=== PATIENT | female | born 1935 | race Caucasian/White ===

== ENCOUNTER 2017-11-30 08:11 | Observation (INO) | payer MEDICARE ==
[~2017-11-30] VITALS: Ht 160 cm; Wt 74.9 kg
[~2017-11-30 08:11] MED LIST: ACIDOPHILUS PO; AMLO5TAB96 PO; DIAZ5 PO; FISH100020 PO; HYDR12.56; OXYC-360 PO; PRIL20CA PO; ROLACHW21 PO; TAB-TAB PO; TAMB50TA2; ZOCO10TA PO; [UNRECOGNIZED DRUG - CODE] PO
[2017-11-30 08:14] VITALS: BP 153/71; PULSE 85; RESP 22; TEMP 97.7; O2SAT 96
[2017-11-30 08:27] VITALS: BP 166/77; PULSE 82; RESP 18; O2SAT 95
[2017-11-30] MEDS ORDERED: SODIUM CHLOR 0.9% 1000 ML INJ 1,000 ML IV ONE (08:32)
--- NOTE | 2017-11-30 08:38 | PD ---
HPI Chief Complaint: GI Complaint Time Seen by Provider: 08:32 Travel History International Travel<30 days: No Contact w/Intl Traveler<30days: No Traveled to known affect area: No History of Present Illness HPI 82-year-old female patient with history of recent pneumonia a week ago, given an antibiotics by primary care doctor, Dr. Gamble, and states that she was not doing well on it, has been nauseous, feeling dizzy, and had been started on a new antibiotics, a cephalosporin yesterday. She continues to have nausea, vomiting, dizziness, not feeling well. She denies any fevers currently, abdominal pains, chest pains, or other issues. She states that now she is not urinating. Modifying Factors: None Associated Signs & Symptoms: Nausea, vomiting, dizziness, not feeling well Risk Factors: Recently diagnosed with pneumonia, on antibiotics PFSH Past Medical History Arthritis: Yes Anxiety: Yes Heart Rhythm Problems: Yes Cancer: No Cardiovascular Problems: No High Cholesterol: Yes Cerebrovascular Accident: Yes Diabetes: No Diminished Hearing: Yes Gastrointestinal Disorders: Yes (DIVERTICULITIS) GERD: Yes Glaucoma: No Hepatitis: No Hiatal Hernia: Yes (GERD) Hypertension: Yes Thyroid Disease: No Menopausal: Yes Past Surgical History Abdominal Surgery: Yes (COLON RESECTION) Appendectomy: Yes Cholecystectomy: Yes Endocrine Surgery: Yes (RIGHT KIDNEY REMOVED - 1966 r/t stenosis) Eye Surgery: Yes (LEFT CATARACT EXTRACT) Genitourinary Surgery: Yes (RIGHT NEPHRECTOMY) Gynecologic Surgery: Yes (HYSTERECTOMY) Hysterectomy: Yes Other Surgery: Yes (NEPHRECTOMY) Family History Family Myocardial Infarction: Yes Social History Alcohol Use: Yes (OCC) Tobacco Use: No Substance Use: No Allergies-Medications (Allergen,Severity, Reaction): Coded Allergies: diatrizoate meglumine (Unverified Allergy, Severe, RASH, 04/10/17) gadobenic acid (Unverified Allergy, Severe, RASH, 04/10/17) gadodiamide (Unverified Allergy, Severe, RASH, 04/10/17) gadoteridol (Unverified Allergy, Severe, RASH, 04/10/17) iodixanol (Unverified Allergy, Severe, RASH, 04/10/17) iohexol (Unverified Allergy, Severe, RASH, 04/10/17) morphine (Unverified Adverse Reaction, Mild, Nausea/Vomiting, 04/10/17) Reported Meds & Prescriptions Reported Meds & Active Scripts Active Reported Dramamine (Dimenhydrinate) 50 Mg Tab 50 Mg PO BID Acidophilus Cap 1 Tab PO DAILY Valium (Diazepam) 5 Mg Tab 5 Mg PO BIDPRN Zocor (Simvastatin) 10 Mg Tab 10 Mg PO HS Norvasc (Amlodipine Besylate) 5 Mg Tab 5 Mg PO DAILY Prilosec (Omeprazole) 20 Mg Capcr 20 Mg PO BID Percocet (Oxycodone/Acetaminophen) 5 Mg/325 Mg Tab 2 Tab PO HS Fish Oil (Tyler-3 Fatty Acids) 1,000 Mg Cap 1,000 Mg PO BID Rolaids (Calcium/Magnesium) Chw 1,000 Mg PO DAILY Multivitamin (Multivitamins) 1 Tab Tab 1 Tab PO DAILY Tambocor (Flecainide Acetate) 50 Mg Tab 50 Mg BID Hctz (Hydrochlorothiazide) 12.5 Mg Cap 12.5 Mg DAILY Review of Systems Except as stated in HPI: all other systems reviewed are Neg Physical Exam Narrative GENERAL: Well-developed elderly female patient currently in mild distress. Awake and oriented 3. She is fairly hard of hearing. SKIN: Focused skin assessment warm/dry. HEAD: Atraumatic. Normocephalic. EYES: Pupils equal and round. No scleral icterus. No injection or drainage. ENT: No nasal bleeding or discharge. Mucous membranes pink and moist. NECK: Trachea midline. No JVD. Supple. CARDIOVASCULAR: Regular rate and rhythm. No murmur appreciated. RESPIRATORY: No accessory muscle use. Clear to auscultation. Breath sounds equal bilaterally. GASTROINTESTINAL: Abdomen soft, non-tender, nondistended. Hepatic and splenic margins not palpable. MUSCULOSKELETAL: No obvious deformities. No clubbing. No cyanosis. No edema. NEUROLOGICAL: Awake and alert. No obvious cranial nerve deficits. Motor grossly within normal limits. Normal speech. PSYCHIATRIC: Appropriate mood and affect; insight and judgment normal. Data Data Last Documented VS Vital Signs Date Time Temp Pulse Resp B/P (MAP) Pulse Ox O2 Delivery O2 Flow Rate FiO2 11/30/17 08:52 96 Room Air 11/30/17 08:52 110 18 11/30/17 08:14 97.7 Orders Orders Sepsis Workup Initiated (11/30/17 ) Complete Blood Count With Diff (11/30/17 08:32) Comprehensive Metabolic Panel (11/30/17 08:32) Lactic Acid Sepsis Protocol (11/30/17 08:32) Lipase (11/30/17 08:32) Urinalysis - C+S If Indicated (11/30/17 08:32) Blood Culture (11/30/17 08:32) Chest, Single Ap (11/30/17 08:32) Blood Glucose (11/30/17 08:32) Ecg Monitoring (11/30/17 08:32) Iv Access Insert/Monitor (11/30/17 08:32) Oximetry (11/30/17 08:32) Oxygen Administration (11/30/17 08:32) Sodium Chlor 0.9% 1000 Ml Inj (Ns 1000 M (11/30/17 08:32) Piperacil-Tazo 4.5 Gm Premix (Zosyn 4.5 (11/30/17 09:57) Azithromycin Inj (Zithromax Inj) (11/30/17 09:57) Labs Laboratory Tests Test 11/30/17 08:45 11/30/17 09:40 White Blood Count 13.7 TH/MM3 Red Blood Count 4.84 MIL/MM3 Hemoglobin 15.7 GM/DL Hematocrit 44.2 % Mean Corpuscular Volume 91.3 FL Mean Corpuscular Hemoglobin 32.5 PG Mean Corpuscular Hemoglobin Concent 35.6 % Red Cell Distribution Width 13.5 % Platelet Count 309 TH/MM3 Mean Platelet Volume 8.7 FL Neutrophils (%) (Auto) 79.0 % Lymphocytes (%) (Auto) 11.0 % Monocytes (%) (Auto) 8.9 % Eosinophils (%) (Auto) 0.5 % Basophils (%) (Auto) 0.6 % Neutrophils # (Auto) 10.8 TH/MM3 Lymphocytes # (Auto) 1.5 TH/MM3 Monocytes # (Auto) 1.2 TH/MM3 Eosinophils # (Auto) 0.1 TH/MM3 Basophils # (Auto) 0.1 TH/MM3 CBC Comment DIFF FINAL Differential Comment Blood Urea Nitrogen 14 MG/DL Creatinine 0.95 MG/DL Random Glucose 120 MG/DL Total Protein 7.6 GM/DL Albumin 3.7 GM/DL Calcium Level 8.9 MG/DL Alkaline Phosphatase 63 U/L Aspartate Amino Transf (AST/SGOT) 19 U/L Alanine Aminotransferase (ALT/SGPT) 34 U/L Total Bilirubin 0.6 MG/DL Sodium Level 128 MEQ/L Potassium Level 3.2 MEQ/L Chloride Level 93 MEQ/L Carbon Dioxide Level 21.8 MEQ/L Anion Gap 13 MEQ/L Estimat Glomerular Filtration Rate 56 ML/MIN Lactic Acid Level 2.1 mmol/L Lipase 103 U/L Urine Color LIGHT-YELLOW Urine Turbidity CLEAR Urine pH 6.5 Urine Specific [place] 1.005 Urine Protein NEG mg/dL Urine Glucose (UA) NEG mg/dL Urine Ketones NEG mg/dL Urine Occult Blood NEG Urine Nitrite NEG Urine Bilirubin NEG Urine Urobilinogen LESS THAN 2.0 MG/DL Urine Leukocyte Esterase NEG Urine WBC LESS THAN 1 /hpf Urine Squamous Epithelial Cells 1 /hpf Microscopic Urinalysis Comment CATH-CULT NOT IND MDM Medical Decision Making Medical Screen Exam Complete: Yes Emergency Medical Condition: Yes Medical Record Reviewed: Yes Interpretation(s) Laboratory Tests Test 11/30/17 08:45 11/30/17 09:40 White Blood Count 13.7 TH/MM3 (4.0-11.0) Hemoglobin 15.7 GM/DL (11.6-15.3) Neutrophils (%) (Auto) 79.0 % (16.0-70.0) Monocytes (%) (Auto) 8.9 % (0.0-8.0) Neutrophils # (Auto) 10.8 TH/MM3 (1.8-7.7) Monocytes # (Auto) 1.2 TH/MM3 (0-0.9) Random Glucose 120 MG/DL (74-106) Sodium Level 128 MEQ/L (136-145) Potassium Level 3.2 MEQ/L (3.5-5.1) Chloride Level 93 MEQ/L (98-107) Estimat Glomerular Filtration Rate 56 ML/MIN (>89) Lactic Acid Level 2.1 mmol/L (0.4-2.0) Last 24 hours Impressions Chest X-Ray 11/30/17 0832 Signed Impressions: Service Date/Time: Thursday, November 30, 2017 08:39 - CONCLUSION: 1. No acute cardiopulmonary disease. Bran Key MD Differential Diagnosis Pneumonia versus dehydration versus viral syndrome versus metabolic issues versus medication side effect Narrative Course Chest x-ray did not show obvious signs of lobar pneumonia. She does have some mild interstitial infiltrates, questionable atypical pneumonia is a possibility here. She has significant leukocytosis. Abdomen is fairly benign. At this point, my plan would be to admit her for further treatment and evaluation. After a IV fluid bolus, she was able to give us urine and it was clean. Case is discussed with Dr. Camara for admission. Diagnosis Primary Impression: Sepsis Admitting Information Admitting Physician Requests: Admit Jin King MD Nov 30, 2017 08:38
[2017-11-30 08:52] VITALS: PULSE 110; RESP 18; O2SAT 96
--- NOTE | 2017-11-30 08:57 | RADRPT ---
EXAM DATE/TIME: 11/30/2017 08:39 [facility] COMPARISON: No previous studies available for comparison. INDICATIONS : Nausea and vomitting. MEDICAL HISTORY : None. SURGICAL HISTORY : None. ENCOUNTER: Initial ACUITY: 3 days PAIN SCORE: 3/10 LOCATION: Bilateral chest FINDINGS: A single view of the chest demonstrates the lungs to be symmetrically aerated without evidence of mas s, infiltrate or effusion. The cardiomediastinal contours are unremarkable. Osseous structures are intact. CONCLUSION: 1. No acute cardiopulmonary disease. Bran Key MD on November 30, 2017 at 8:54 Board Certified Radiologist. This report was verified electronically.
[2017-11-30 09:12] LABS: AUTOMATED NEUTROPHIL # 10.8 TH/MM3 (1.8-7.7); BASOPHIL # 0.1 TH/MM3 (0-0.2); BASOPHIL % 0.6 % (0.0-2.0); EOSINOPHIL # 0.1 TH/MM3 (0-0.4); EOSINOPHIL % 0.5 % (0.0-4.0); HEMATOCRIT 44.2 % (35.0-46.0); HEMOGLOBIN 15.7 GM/DL (11.6-15.3); LYMPHOCYTE # 1.5 TH/MM3 (1.0-4.8); MEAN CELL VOLUME 91.3 FL (80.0-100.0); MEAN CORPUSCULAR HEMOGLOBIN 32.5 PG (27.0-34.0); MEAN CORPUSCULAR HGB CONC 35.6 % (32.0-36.0); MEAN PLATELET VOLUME 8.7 FL (7.0-11.0); MONO % 8.9 % (0.0-8.0); MONOCYTE # 1.2 TH/MM3 (0-0.9); PLATELET COUNT 309 TH/MM3 (150-450); RED BLOOD COUNT 4.84 MIL/MM3 (4.00-5.30); RED CELL DISTRIBUTION WIDTH 13.5 % (11.6-17.2); WHITE BLOOD COUNT 13.7 TH/MM3 (4.0-11.0)
[2017-11-30 09:25] LABS: LACTIC ACID SEPSIS PROTOCOL 2.1 mmol/L (0.4-2.0)
[2017-11-30 09:32] LABS: ALBUMIN 3.7 GM/DL (3.4-5.0); AST (GOT) 19 U/L (15-37); BICARBONATE 21.8 MEQ/L (21.0-32.0); BLOOD UREA NITROGEN 14 MG/DL (7-18); CALCIUM 8.9 MG/DL (8.5-10.1); CHLORIDE 93 MEQ/L (98-107); CREATININE 0.95 MG/DL (0.50-1.00); GLOMERULAR FILTRATION RATE 56 ML/MIN (>89); GLUCOSE,RANDOM 120 MG/DL (74-106); SODIUM (NA) 128 MEQ/L (136-145)
[2017-11-30 09:33] LABS: ALT (GPT) 34 U/L (10-53)
[2017-11-30 09:35] LABS: ALKALINE PHOSPHATASE 63 U/L (45-117); TOTAL BILIRUBIN ADULT 0.6 MG/DL (0.2-1.0); TOTAL PROTEIN 7.6 GM/DL (6.4-8.2)
[2017-11-30 09:52] LABS: BILIRUBIN, URINE NEG (NEG); BLOOD, URINE NEG (NEG); GLUCOSE,URINE NEG (NEG); KETONE, URINE NEG (NEG); NITRITE,URINE NEG (NEG); PH, URINE 6.5 (5.0-8.5); SQUAMOUS EPITHELIAL CELL URINE 1 /hpf (0-5); URINE COLOR LIGHT-YELLOW (YELLW/STRAW); URINE LEUKOCYTE ESTERASE NEG (NEG)
[2017-11-30] MEDS ORDERED: PIPERACIL-TAZO 4.5 GM PREMIX 100 ML IV STA (09:57)
[2017-11-30] MEDS ORDERED: AZITHROMYCIN INJ 500 MG in SODIUM CHLOR 0.9% 250 ML INJ 250 ML IV STA (09:57)
[2017-11-30] MEDS ORDERED: SIMV10TA PO (12:00)
[2017-11-30] MEDS ORDERED: ROPI0.25 PO ×2 (12:00)
[2017-11-30] MEDS ORDERED: LACT1TAB12 (12:00)
[2017-11-30] MEDS ORDERED: FLEC1TAB8 PO (12:00)
[2017-11-30] MEDS ORDERED: AMLO2.5T PO (12:00)
[2017-11-30] MEDS ORDERED: FLAX10002 (12:00)
[2017-11-30] MEDS ORDERED: CALC1TAB87 PO (12:00)
[2017-11-30] MEDS ORDERED: VENTAER INH (12:00)
[2017-11-30] MEDS ORDERED: POTA10TA15 PO (12:00)
[2017-11-30] MEDS ORDERED: D31000CA3 (12:00)
[2017-11-30] MEDS ORDERED: HYDR25TA5 PO (12:00)
[2017-11-30] MEDS ORDERED: GABA300C5 PO (12:00)
[2017-11-30] MEDS ORDERED: LORA0.5T PO (12:00)
[2017-11-30] MEDS ORDERED: ESCI20TA PO (12:00)
[2017-11-30] MEDS ORDERED: OXYC1TAB63 PO (12:00)
[2017-11-30] MEDS ORDERED: LORazepam 0.5 MG TAB PO PRN (15:00)
[2017-11-30] MEDS ORDERED: TEMAZEPAM 15 MG CAP PO PRN (15:00)
--- NOTE | 2017-11-30 15:15 | HHI.HP ---
HPI Service [facility] Hospitalists Primary Care Physician Clemencia Simons Jr, MD Admission Diagnosis Pulmonary fibrosis, dyspnea on exertion Chief Complaint: SOB Travel History International Travel<30 Days: No Contact w/Intl Traveler <30 Da: No Traveled to Known Affected Are: No History of Present Illness Mrs. Hernandez is a pleasant 82 y/o WF with HTN, paroxysmal atrial fibrillation, fibromyalgia, and RLS. She was brought to the ED on 11/30/17 after she had some nausea/vomiting and diarrhea early this morning. The pt is a rather poor historian. The history was obtained from the pts son, Jimbo, who lives with her and from review of outpt records. According to the pts son, the pt had her regular annual physical with Dr. Simons, on November 16, 2017 and she had been having some SOB and coughing with ambulation for about 2-3 weeks was sent for a CXR. Her son reports that she would have coughing fits but it was a dry cough, no green phlegm. Pts symptoms of cough and SOB with exertion mainly. She is not SOB at rest. She was then sent for a noncontrasted CT Thorax which was performed on 11/22 and noted basilar and peripherally predominant pulmonary fibrosis with reticulation are characteristic of usual interstitial pneumonitis pattern. Pt was started on Levofloxacin 750mg, started on 11/23, and the pt reportedly felt restless, dizzy, confused, and had shaking chills per the son after the second dose. The Levaquin was stopped after the second dose and she called the PCP and a second Abx, Cefuroxime was called in. Pt took one dose yesterday evening and then reportedly started feeling very ill and had nausea/ vomiting and diarrhea early this morning. This prompted her to come into the ED. Her labs noted a WBC count of 13.7, Na+ 128, K+ 3.2. In the ED CXR was read as no acute cardiopulmonary disease. Pt was given a dose of Zosyn and Azithromycin IV in the ED. Pt had been scheduled to see a fur trapper today but ended up in the ED. She was scheduled to see Dr. Taylor. Review of Systems Constitutional: DENIES: Fever, Chills Respiratory: COMPLAINS OF: Cough Cardiovascular: COMPLAINS OF: Dyspnea on Exertion, DENIES: Chest pain, Palpitations, Lower Extremity Edema Gastrointestinal: COMPLAINS OF: Diarrhea, Nausea, Vomiting Genitourinary: DENIES: Urinary frequency, Urinary incontinence Musculoskeletal: DENIES: Back pain Integumentary: DENIES: Rash Neurologic: DENIES: Headache Past Family Social History Past Medical History Paroxysmal atrial fibrillation HTN Chronic back pain Fibromyalgia RLS Peripheral neuropathy Past Surgical History Right nephrectomy due to ureteral stricture Partial colectomy Total hysterectomy Cholecystectomy Reported Medications Vitamin D-3 (Cholecalciferol) 1,000 Unit Cap Ventolin Hfa 18 GM Inh (Albuterol Sulfate) 90 Mcg/Act Aer 2 Puff INH Q4-6H PRN Simvastatin 10 Mg Tab 10 Mg PO HS Ropinirole 0.5 Mg PO HS Ropinirole 0.25 Mg Tab 0.25 Mg PO BID Potassium Chloride Microencaps 10 Meq Tab 10 Meq PO DAILY Oxycodone-Acetaminophen 5-325 mg Tab 1 Tab PO Q8HR PRN Lorazepam 0.5 Mg Tab 0.5 Mg PO BID PRN Hydrochlorothiazide 25 Mg Tab 25 Mg PO DAILY Gabapentin 300 Mg Cap 300 Mg PO Q8HR Flecainide (Flecainide Acetate) 50 Mg Tab 50 Mg PO BID Flax Seed Oil 1000 mg (Flaxseed (Linseed)) 1,000 Mg Cap Escitalopram (Escitalopram Oxalate) 20 Mg Tab 20 Mg PO DAILY Calcium 600 with Vitamin D (Calcium Carbonate-Cholecalciferol) 600-400 mg-Unit Tab 1 Tab PO DAILY Amlodipine (Amlodipine Besylate) 2.5 Mg Tab 2.5 Mg PO DAILY Acidophilus-Pectin [place] (L. Acidophilus/Pectin, [place]) 25 Million Cell-100 Mg Tablet Allergies: Coded Allergies: diatrizoate meglumine (Unverified Allergy, Severe, RASH, 04/10/17) gadobenic acid (Unverified Allergy, Severe, RASH, 04/10/17) gadodiamide (Unverified Allergy, Severe, RASH, 04/10/17) gadoteridol (Unverified Allergy, Severe, RASH, 04/10/17) iodixanol (Unverified Allergy, Severe, RASH, 04/10/17) iohexol (Unverified Allergy, Severe, RASH, 04/10/17) Corticosteroids (Glucocorticoids) (Verified Allergy, Unknown, 11/30/17) Iodine and Iodide Containing Produc (Verified Allergy, Unknown, 11/30/17) Macrolide Antibiotics (Verified Allergy, Unknown, 11/30/17) albuterol (Verified Allergy, Unknown, 11/30/17) amoxicillin (Verified Allergy, Unknown, 11/30/17) ampicillin (Verified Allergy, Unknown, 11/30/17) clavulanic acid (Verified Allergy, Unknown, 11/30/17) clindamycin (Verified Allergy, Unknown, 11/30/17) cyclobenzaprine (Verified Allergy, Unknown, 11/30/17) meperidine (Verified Allergy, Unknown, 11/30/17) mirtazapine (Verified Allergy, Unknown, 11/30/17) mupirocin (Verified Allergy, Unknown, 11/30/17) pramipexole (Verified Allergy, Unknown, 11/30/17) prednisone (Verified Allergy, Unknown, 11/30/17) tramadol (Verified Allergy, Unknown, 11/30/17) venlafaxine (Verified Allergy, Unknown, 11/30/17) morphine (Unverified Adverse Reaction, Mild, Nausea/Vomiting, 04/10/17) Uncoded Allergies: Serotonin reuptake inhibitors (Allergy, Unknown, 11/30/17) sympathomimetics (Allergy, Unknown, 11/30/17) tricyclic antidepressants (Allergy, Unknown, 11/30/17) Family History Sister with a hx of lung cancer Social History Denies any alcohol, tobacco or illicit drug use Pt was born in [place] She lives with her son who helps care for her Physical Exam Vital Signs Vital Signs Date Time Temp Pulse Resp B/P (MAP) Pulse Ox O2 Delivery O2 Flow Rate FiO2 11/30/17 13:10 11/30/17 08:52 96 Room Air 11/30/17 08:52 110 18 96 Room Air 11/30/17 08:27 82 18 166/77 (106) 95 Room Air 11/30/17 08:27 18 11/30/17 08:14 97.7 85 22 153/71 (98) 96 Physical Exam GENERAL: This is a well-nourished, well-developed patient, in no apparent distress. HEENT: Atraumatic. Normocephalic. No temporal or scalp tenderness. No scleral icterus. Airway patent. NECK: Trachea midline, supple, nontender. CARDIO: Regular. RESP: Fine basilar crackles, no wheezing or rhonchi ABD: +BS, soft, non-tender, nondistended. EXT: Extremities without clubbing, cyanosis, or edema. NEURO: Awake and alert. Motor and sensory grossly within normal limits. Normal speech. Laboratory Laboratory Tests Test 11/30/17 08:45 11/30/17 09:40 11/30/17 12:07 White Blood Count 13.7 Red Blood Count 4.84 Hemoglobin 15.7 Hematocrit 44.2 Mean Corpuscular Volume 91.3 Mean Corpuscular Hemoglobin 32.5 Mean Corpuscular Hemoglobin Concent 35.6 Red Cell Distribution Width 13.5 Platelet Count 309 Mean Platelet Volume 8.7 Neutrophils (%) (Auto) 79.0 Lymphocytes (%) (Auto) 11.0 Monocytes (%) (Auto) 8.9 Eosinophils (%) (Auto) 0.5 Basophils (%) (Auto) 0.6 Neutrophils # (Auto) 10.8 Lymphocytes # (Auto) 1.5 Monocytes # (Auto) 1.2 Eosinophils # (Auto) 0.1 Basophils # (Auto) 0.1 CBC Comment DIFF FINAL Differential Comment Blood Urea Nitrogen 14 Creatinine 0.95 Random Glucose 120 Total Protein 7.6 Albumin 3.7 Calcium Level 8.9 Alkaline Phosphatase 63 Aspartate Amino Transf (AST/SGOT) 19 Alanine Aminotransferase (ALT/SGPT) 34 Total Bilirubin 0.6 Sodium Level 128 Potassium Level 3.2 Chloride Level 93 Carbon Dioxide Level 21.8 Anion Gap 13 Estimat Glomerular Filtration Rate 56 Lactic Acid Level 2.1 1.2 Lipase 103 Urine Color LIGHT-YELLOW Urine Turbidity CLEAR Urine pH 6.5 Urine Specific [place] 1.005 Urine Protein NEG Urine Glucose (UA) NEG Urine Ketones NEG Urine Occult Blood NEG Urine Nitrite NEG Urine Bilirubin NEG Urine Urobilinogen LESS THAN 2.0 Urine Leukocyte Esterase NEG Urine WBC LESS THAN 1 Urine Squamous Epithelial Cells 1 Microscopic Urinalysis Comment CATH-CULT NOT IND Date/Time Source Procedure Growth Status 11/30/17 08:45 Blood Peripheral Aerobic Blood Culture Pending Received 11/30/17 08:45 Blood Peripheral Anaerobic Blood Culture Pending Received Result Diagram: 11/30/17 0845 11/30/17 0845 Imaging Last Impressions Chest X-Ray 11/30/17 0832 Signed Impressions: Service Date/Time: Thursday, November 30, 2017 08:39 - CONCLUSION: 1. No acute cardiopulmonary disease. BranMD Jordana Bueno VTE Risk Assessment [place] VTE Risk Assessment: Mod/High Risk (score >= 2) Caprini Risk Assessment Model Point Value = 1 Point Value = 2 Point Value = 3 Point Value = 5 Age 41-60 Minor surgery BMI > 25 kg/m2 Swollen legs Varicose veins or History of unexplained or recurrent spontaneous Oral contraceptives or hormone replacement Sepsis (< 1 month) Serious lung disease, including pneumonia (< 1 month) Abnormal pulmonary function Acute myocardial infarction Congestive heart failure (< 1 month) History of inflammatory bowel disease Medical patient at bed rest Age 61-74 Arthroscopic surgery Major open surgery (> 45 min) Laparoscopic surgery (> 45 min) Malignancy Confined to bed (> 72 hours) Immobilizing plaster cast Central venous access Age >= 75 History of VTE Family history of VTE Factor V Leiden Prothrombin [id number] Lupus anticoagulant Anticardiolipin antibodies Elevated serum homocysteine Heparin-induced thrombocytopenia Other congenital or acquired thrombophilia Stroke (< 1 month) Elective arthroplasty Hip, pelvis, or leg fracture Acute spinal cord injury (< 1 month) Prophylaxis Regimen Total Risk Factor Score Risk Level Prophylaxis Regimen 0-1 Low Early ambulation 2 Moderate Order ONE of the following: *Sequential Compression Device (SCD) *Heparin 5000 units SQ BID 3-4 Higher Order ONE of the following medications: *Heparin 5000 units SQ TID *Enoxaparin/Lovenox 40 mg SQ daily (WT < 150 kg, CrCl > 30 mL/min) *Enoxaparin/Lovenox 30 mg SQ daily (WT < 150 kg, CrCl > 10-29 mL/min) *Enoxaparin/Lovenox 30 mg SQ BID (WT < 150 kg, CrCl > 30 mL/min) AND/OR *Sequential Compression Device (SCD) 5 or more Highest Order ONE of the following medications: *Heparin 5000 units SQ TID (Preferred with Epidurals) *Enoxaparin/Lovenox 40 mg SQ daily (WT < 150 kg, CrCl > 30 mL/min) *Enoxaparin/Lovenox 30 mg SQ daily (WT < 150 kg, CrCl > 10-29 mL/min) *Enoxaparin/Lovenox 30 mg SQ BID (WT < 150 kg, CrCl > 30 mL/min) AND *Sequential Compression Device (SCD) Assessment and Plan Problem List: (1) Pulmonary fibrosis ICD Codes: J84.10 - Pulmonary fibrosis, unspecified Status: Chronic Plan: Pulmonary fibrosis CRUZ, cough on exertion ?hypoxia on exertion in the setting of pulmonary fibrosis - Pt is an 82 y/o WF with HTN, paroxysmal atrial fibrillation, fibromyalgia, and RLS. - She was brought to the ED on 11/30/17 after she had some nausea/vomiting and diarrhea early this morning. Pt has multiple medication sensitivities/reactions. - According to the pts son, the pt had her regular annual physical with Dr. Simons, on November 16, 2017 and she had been having some SOB and coughing with ambulation for about 2-3 weeks was sent for a CXR. Her son reports that she would have coughing fits but it was a dry cough, no green phlegm. Pts symptoms of cough and SOB with exertion mainly. She is not SOB at rest. She was then sent for a noncontrasted CT Thorax (11/22/17) --> basilar and peripherally predominant pulmonary fibrosis with reticulation are characteristic of usual interstitial pneumonitis pattern. Pt was started on Levofloxacin 750mg, started on 11/23, and the pt reportedly felt restless, dizzy, confused, and had shaking chills per the son after the second dose. The Levaquin was stopped after the second dose and she called the PCP and a second Abx, Cefuroxime was called in. Pt took one dose yesterday evening and then reportedly started feeling very ill and had nausea/vomiting and diarrhea early this morning. This prompted her to come into the ED. - Her labs noted a WBC count of 13.7, Na+ 128, K+ 3.2. - CXR in the ED was read as no acute cardiopulmonary disease. - Pt was given a dose of Zosyn and Azithromycin IV in the ED. - We will hold off on continuing any Abx at this time. She is not febrile and is not currently feeling SOB or coughing. - Check walk test to see if she is getting hypoxic on exertion which may have been causing her previous SOB and cough - Consult Pulmonary medicine - Supplemental O2 as needed - Duonebs PRN - Supportive care Nausea/vomiting/Diarrhea, likely medication sensitivity Hyponatremia Hypokalemia - Likely related to medication sensitivity and dehydration - Hold on any further antibiotics - Give some gentle IVF - Zofran PRN - If she has any further diarrhea, check stool studies for C. diff Paroxysmal A. fib - Cont. home meds - Pt currently in NSR HTN - Resume home Norvasc, hold HCTZ - Monitor Fibromyalgia - resume home meds RLS - Resume home meds (2) Dyspnea on exertion ICD Codes: R06.09 - Other forms of dyspnea Status: Acute (3) HTN (hypertension) ICD Codes: I10 - Essential (primary) hypertension Status: Chronic (4) Paroxysmal atrial fibrillation ICD Codes: I48.0 - Paroxysmal atrial fibrillation Status: Chronic (5) Fibromyalgia ICD Codes: M79.7 - Fibromyalgia Status: Chronic (6) RLS (restless legs syndrome) ICD Codes: G25.81 - Restless legs syndrome Status: Chronic (7) Hyperlipidemia ICD Codes: E78.5 - Hyperlipidemia, unspecified Status: Chronic Physician Certification 2 Midnight Certification Type: Admission for Inpatient Services Order for Inpatient Services The services are ordered in accordance with Medicare regulations or non- Medicare payer requirements, as applicable. In the case of services not specified as inpatient-only, they are appropriately provided as inpatient services in accordance with the 2-midnight benchmark. Estimated LOS (days): 2 2 days is the estimated time the patient will need to remain in the hospital, assuming treatment plan goals are met and no additional complications. Post-Hospital Plan: Not yet determined Vanesa Goodwin Nov 30, 2017 15:15
[2017-11-30] MEDS ORDERED: oxyCODONE/ACETAMINOPHEN 5 MG/325 MG TAB PO PRN (15:45)
[2017-11-30 16:00] VITALS: BP 166/93; PULSE 81; RESP 18; TEMP 97.8; O2SAT 95
[2017-11-30] MEDS ORDERED: PILL SPLITTER OTHER PRN (16:15)
[2017-11-30] MEDS ORDERED: ONDANSETRON HCL 4 MG/2 ML VIAL IV PRN (16:15)
[2017-11-30] MEDS ORDERED: ACETAMINOPHEN 325 MG TAB PO PRN (16:15)
[2017-11-30] MEDS ORDERED: ENALAPRILAT 1.25 MG/ML VIAL IV PUSH PRN (16:30)
[2017-11-30] MEDS ORDERED: cloNIDine HCL 0.1 MG TAB PO PRN (16:30)
[2017-11-30] MEDS: GABAPENTIN 300 MG CAP PO SCH (17:20)
[2017-11-30] MEDS: NS + KCL 20 MEQ INJ 1,000 ML IV SCH (17:21)
[2017-11-30 20:00] VITALS: BP 139/65; PULSE 76; RESP 18; TEMP 97.3; O2SAT 91
[2017-11-30] MEDS ORDERED: PRAVASTATIN SOD 20 MG TAB PO SCH (21:00)
[2017-11-30] MEDS: FLECAINIDE ACETATE 100 MG TAB PO SCH (21:14)
[2017-11-30 22:46] LABS: RHEUMATOID FACTOR SCREEN NEGATIVE (NEGATIVE)
[2017-12-01] VITALS: BP 127/62; PULSE 72; RESP 18; TEMP 97.9; O2SAT 94
[2017-12-01] MEDS: NS + KCL 20 MEQ INJ 1,000 ML IV SCH (03:55)
[2017-12-01] MEDS: GABAPENTIN 300 MG CAP PO SCH ×2 (07:46→11:45)
[2017-12-01] MEDS: FLECAINIDE ACETATE 100 MG TAB PO SCH (07:46)
[2017-12-01 08:00] VITALS: BP 161/67; PULSE 70; RESP 20; TEMP 97.8; O2SAT 94
[2017-12-01] MEDS ORDERED: amLODIPine BESYLATE 5 MG TAB PO SCH (09:00)
--- NOTE | 2017-12-01 10:15 | HHI.PR ---
Subjective Remarks Pt feeling well today She passed her walk test and will not require O2 today. She ambulated down the hallway without SOB or cough this morning. She had one loose BM this morning Pt eating and drinking without difficulty No further vomiting Objective Vitals Vital Signs Date Time Temp Pulse Resp B/P (MAP) Pulse Ox O2 Delivery O2 Flow Rate FiO2 12/01/17 08:00 97.8 70 20 161/67 (98) 94 12/01/17 00:00 97.9 72 18 127/62 (83) 94 11/30/17 20:00 97.3 76 18 139/65 (89) 91 11/30/17 16:00 97.8 81 18 166/93 (117) 95 11/30/17 13:10 Result Diagram: 11/30/17 0845 11/30/17 0845 Other Results Laboratory Tests Test 11/30/17 08:45 11/30/17 09:40 11/30/17 12:07 12/01/17 05:47 White Blood Count 13.7 TH/MM3 Red Blood Count 4.84 MIL/MM3 Hemoglobin 15.7 GM/DL Hematocrit 44.2 % Mean Corpuscular Volume 91.3 FL Mean Corpuscular Hemoglobin 32.5 PG Mean Corpuscular Hemoglobin Concent 35.6 % Red Cell Distribution Width 13.5 % Platelet Count 309 TH/MM3 Mean Platelet Volume 8.7 FL Neutrophils (%) (Auto) 79.0 % Lymphocytes (%) (Auto) 11.0 % Monocytes (%) (Auto) 8.9 % Eosinophils (%) (Auto) 0.5 % Basophils (%) (Auto) 0.6 % Neutrophils # (Auto) 10.8 TH/MM3 Lymphocytes # (Auto) 1.5 TH/MM3 Monocytes # (Auto) 1.2 TH/MM3 Eosinophils # (Auto) 0.1 TH/MM3 Basophils # (Auto) 0.1 TH/MM3 CBC Comment DIFF FINAL Differential Comment Blood Urea Nitrogen 14 MG/DL Creatinine 0.95 MG/DL Random Glucose 120 MG/DL Total Protein 7.6 GM/DL Albumin 3.7 GM/DL Calcium Level 8.9 MG/DL Alkaline Phosphatase 63 U/L Aspartate Amino Transf (AST/SGOT) 19 U/L Alanine Aminotransferase (ALT/SGPT) 34 U/L Total Bilirubin 0.6 MG/DL Sodium Level 128 MEQ/L Potassium Level 3.2 MEQ/L Chloride Level 93 MEQ/L Carbon Dioxide Level 21.8 MEQ/L Anion Gap 13 MEQ/L Estimat Glomerular Filtration Rate 56 ML/MIN Lactic Acid Level 2.1 mmol/L 1.2 mmol/L Lipase 103 U/L Rheumatoid Factor Screen NEGATIVE Rheumatoid Factor Titer IU/ML Urine Color LIGHT-YELLOW Urine Turbidity CLEAR Urine pH 6.5 Urine Specific [place] 1.005 Urine Protein NEG mg/dL Urine Glucose (UA) NEG mg/dL Urine Ketones NEG mg/dL Urine Occult Blood NEG Urine Nitrite NEG Urine Bilirubin NEG Urine Urobilinogen LESS THAN 2.0 MG/DL Urine Leukocyte Esterase NEG Urine WBC LESS THAN 1 /hpf Urine Squamous Epithelial Cells 1 /hpf Microscopic Urinalysis Comment CATH-CULT NOT IND Erythrocyte Sedimentation Rate 10 mm/hr Imaging Last Impressions Chest X-Ray 11/30/17 0832 Signed Impressions: Service Date/Time: Thursday, November 30, 2017 08:39 - CONCLUSION: 1. No acute cardiopulmonary disease. Bran Key MD Objective Remarks General: NAD, Alert and oriented, some confusion which improves with redirection Chest: Fine crackles at the bases bilaterally Cardiac: Regular Abd: +BS, soft ND/NT Ext: No edema A/P Problem List: (1) Pulmonary fibrosis ICD Codes: J84.10 - Pulmonary fibrosis, unspecified Status: Chronic Plan: Pulmonary fibrosis CRUZ, cough on exertion ?hypoxia on exertion in the setting of pulmonary fibrosis - Pt is an 82 y/o WF with HTN, paroxysmal atrial fibrillation, fibromyalgia, and RLS. - She was brought to the ED on 11/30/17 after she had some nausea/vomiting and diarrhea early this morning. Pt has multiple medication sensitivities/reactions. - According to the pts son, the pt had her regular annual physical with Dr. Gamble, on November 16, 2017 and she had been having some SOB and coughing with ambulation for about 2-3 weeks was sent for a CXR. Her son reports that she would have coughing fits but it was a dry cough, no green phlegm. Pts symptoms of cough and SOB with exertion mainly. She is not SOB at rest. She was then sent for a noncontrasted CT Thorax (11/22/17) --> basilar and peripherally predominant pulmonary fibrosis with reticulation are characteristic of usual interstitial pneumonitis pattern. Pt was started on Levofloxacin 750mg, started on 11/23, and the pt reportedly felt restless, dizzy, confused, and had shaking chills per the son after the second dose. The Levaquin was stopped after the second dose and she called the PCP and a second Abx, Cefuroxime was called in. Pt took one dose yesterday evening and then reportedly started feeling very ill and had nausea/vomiting and diarrhea early this morning. This prompted her to come into the ED. - Her labs noted a WBC count of 13.7, Na+ 128, K+ 3.2. - CXR in the ED was read as no acute cardiopulmonary disease. - Pt was given a dose of Zosyn and Azithromycin IV in the ED. - We will hold off on continuing any Abx at this time. She is not febrile and is not currently feeling SOB or coughing. - Pt passed her walk test with O2 decreasing to 90% with ambulation - Appreciate consult from Pulmonary medicine - Bedside PFTs ordered - Pt ambulating without difficulty, SOB or cough - Duonebs PRN - Supportive care - Anticipate d/c home later today after PFTs performed - Pt will need to followup with Dr. Taylor in 2 weeks - Pt will need to followup with Dr. Gamble in 1 week Nausea/vomiting/Diarrhea, likely medication sensitivity Hyponatremia Hypokalemia - Likely related to medication sensitivity and dehydration - Hold on any further antibiotics - Stop IVF, pt eating and drinking without difficulty - Zofran PRN - If she has any further diarrhea, check stool studies for C. diff Paroxysmal A. fib - Cont. home meds - Pt currently in NSR HTN - Resume home Norvasc, hold HCTZ - Monitor Fibromyalgia - resume home meds RLS - Resume home meds (2) Dyspnea on exertion ICD Codes: R06.09 - Other forms of dyspnea Status: Acute (3) HTN (hypertension) ICD Codes: I10 - Essential (primary) hypertension Status: Chronic (4) Paroxysmal atrial fibrillation ICD Codes: I48.0 - Paroxysmal atrial fibrillation Status: Chronic (5) Fibromyalgia ICD Codes: M79.7 - Fibromyalgia Status: Chronic (6) RLS (restless legs syndrome) ICD Codes: G25.81 - Restless legs syndrome Status: Chronic (7) Hyperlipidemia ICD Codes: E78.5 - Hyperlipidemia, unspecified Status: Chronic Assessment and Plan Patient examined. Assessment and plan formulated with Vanesa Goodwin PA-C. I agree with the above. pulmonary fibrosis. 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 no evidence for bacterial pna. f/u with her workers compensation manager who saw her here. stop abx. she had n/v/d from abx no better and rehydrated. Vaensa Goodwin Dec 01, 2017 10:15 Valentin Camara MD Dec 01, 2017 13:30
--- NOTE | 2017-12-01 10:18 | HHI.FF ---
Face to Face Verification Diagnosis: (1) Pulmonary fibrosis (2) Dyspnea on exertion (3) HTN (hypertension) (4) Paroxysmal atrial fibrillation (5) Hyperlipidemia (6) Fibromyalgia (7) RLS (restless legs syndrome) Home Health Nursing Order: Nursing assessment with vital signs I have seen patient Marbella Hernandez on 12/01/17. My clinical findings support the need for the requested home health care services because: Patient has SOB I certify that my clinical findings support that this patient is homebound because: Hx COPD- exertion dyspnea/weakness (Pt has pulmonary fibrosis, not COPD, with exertional dyspnea) Vanesa Goodwin Dec 01, 2017 10:18 John Wan DO Dec 03, 2017 11:33
--- NOTE | 2017-12-01 10:19 | HHI.DCPOC ---
Discharge Care Plan Diagnosis: (1) Pulmonary fibrosis (2) Dyspnea on exertion (3) RLS (restless legs syndrome) (4) HTN (hypertension) (5) Paroxysmal atrial fibrillation (6) Hyperlipidemia (7) Fibromyalgia Goals to Promote Your Health - Pt will need to followup with Dr. Taylor in 2 weeks, call for an appt - Pt will need to followup with Dr. Gamble in 1 week, call for an appt Directions to Meet Your Goals Take your medications as prescribed Follow your dietary instruction Follow activity as directed Keep your appointments as scheduled Take your immunizations and boosters as scheduled If your symptoms worsen call your PCP, if no PCP go to Urgent Care Center or Emergency Room Smoking is Dangerous to Your Health. Avoid second hand smoke Call the 24-hour hour crisis hotline for domestic abuse at Vanesa Goodwin Dec 01, 2017 10:19 John Wan DO Dec 08, 2017 12:31
[2017-12-01 12:00] VITALS: BP 145/66; PULSE 72; RESP 22; TEMP 97.4; O2SAT 93
[2017-12-01 12:41] LABS: BICARBONATE 26.4 MEQ/L (21.0-32.0); CALCIUM 8.2 MG/DL (8.5-10.1); CREATININE 0.76 MG/DL (0.50-1.00)
--- NOTE | 2017-12-01 15:45 | HHI.PR ---
Subjective Remarks 82 YOWF with SOB, N,V Breathing better No Cough or sp No Abd pain Objective Vital Signs Vital Signs Date Time Temp Pulse Resp B/P (MAP) Pulse Ox O2 Delivery O2 Flow Rate FiO2 12/01/17 12:00 97.4 72 22 145/66 (92) 93 12/01/17 08:00 97.8 70 20 161/67 (98) 94 12/01/17 00:00 97.9 72 18 127/62 (83) 94 11/30/17 20:00 97.3 76 18 139/65 (89) 91 11/30/17 16:00 97.8 81 18 166/93 (117) 95 I/O 11/30/17 11/30/17 11/30/17 12/01/17 12/01/17 12/01/17 07:00 15:00 23:00 07:00 15:00 23:00 Intake Total 1350 ml 240 ml 1240 ml Balance 1350 ml 240 ml 1240 ml Intake Oral 240 ml 240 ml IV Total 1350 ml 1000 ml # Voids 1 2 # Bowel Movements 0 0 Result Diagram: 11/30/17 0845 12/01/17 1106 Objective Remarks GENERAL: MBMNWF NAD SKIN: Warm and dry. HEAD: Normocephalic. EYES: No scleral icterus. No injection or drainage. NECK: Supple, trachea midline. No JVD or lymphadenopathy. CARDIOVASCULAR: Regular rate and rhythm without murmurs, gallops, or rubs. RESPIRATORY: Breath sounds equal bilaterally. No accessory muscle use. Insp rales GASTROINTESTINAL: Abdomen soft, non-tender, nondistended. MUSCULOSKELETAL: No cyanosis, or edema. BACK: Nontender without obvious deformity. No CVA tenderness. A/P Assessment and Plan Dysnoea Pulm Fibrosis N,V Bronchitis PLAN: DC plans for home Stable on RA Will Check PFT FU in office. Talat Taylor MD Dec 01, 2017 15:45
--- NOTE | 2017-12-03 09:32 | MB ---
cc: Talat Taylor MD DATE: 11/30/2017 REFERRING PHYSICIAN: Dr. Valentin Camara REASON FOR CONSULTATION: Evaluation for pulmonary fibrosis and shortness of breath. HISTORY OF PRESENT ILLNESS: Ms. Hernandez is a pleasant 82-year-old white female rather a poor historian. She is not feeling well for the last few weeks. The patient was seen by Dr. Gamble and was given an antibiotic because she was having a persistent cough. She did not get better. She was supposed to come to see me in the office; however, because of worsening of symptoms, she was sent to the emergency room. The patient was worked up in the hospital. She recently had a CT scan of the chest done, which as per Dr. Shields she has a pattern consistent with URI. The patient has shortness of breath. Denies any fever, chills. No night sweats, no chest pain. PAST MEDICAL HISTORY: Significant for hypertension, fibromyalgia, restless leg syndrome, history of partial colectomy, total hysterectomy, cholecystectomy and right nephrectomy because of ureteral calculus. MEDICATIONS: She is currently taking more amlodipine 2.5 mg a day, flecainide 50 mg twice a day, Requip 0.25 mg twice a day, pravastatin 20 mg, Neurontin 300 mg 3 times a day, lorazepam 0.5 mg twice a day, temazepam 15 mg at nighttime. ALLERGIES: ALLERGIC TO STEROIDS, IODINE, MACROLIDE ANTIBIOTICS, SEROTONIN REUPTAKE INHIBITOR, ALBUTEROL, AMOXICILLIN. SOCIAL HISTORY: She is a , lives with her son. No history of smoking, alcohol. She worked as a accredited legal secretary. She has 3 children. REVIEW OF SYSTEMS: Normally, she is up around and active. Does not use any oxygen. No DVT or pulmonary embolism. No seizures, stroke or epilepsy. PHYSICAL EXAMINATION: GENERAL: Elderly female, mild short of breath, not in acute distress. VITAL SIGNS: Blood pressure 166/93, heart rate 80, respirations 18, temperature 97.8. HEENT: Pupils are equal and reactive to light. Oral mucosa and nasal mucosa normal. NECK: Supple. JVD not raised. CHEST: Equal air entry bilaterally. Bilat Crackles. CARDIOVASCULAR: S1, S2 normal. ABDOMEN: Benign. EXTREMITIES: No edema. IMPRESSION: 1. Shortness of breath with interstitial lung infiltrate, likely the patient has pulmonary fibrosis. 2. Hypertension. 3. Recent nausea. 4. Hypertension. 5. Paroxysmal atrial fibrillation. 6. Fibromyalgia. PLAN: I will check a pulmonary function study, also check oxygen walk test, also get MALGORZATA, rheumatoid factor, and review her previously done CT scan of the chest. Further treatment depending on the course in the hospital. Thank you Dr. Camara for this consult. Talat Taylor MD ADA/rt , 07:28 PM , 08:17 PM PERRY
--- NOTE | 2017-12-04 10:21 | RSPPFT ---
DATE OF PROCEDURE: 12/01/17 COMMENTS: Spirometry shows FVC of 1.7 at 72% of predicted, FEV1 of 1.4 at 88%, FEV1/FVC ratio is normal. Flow is normal at FEF 25, FEF 50, FEF 75 and FEF 25-75. Flow volume loop indicates a normal pattern. IMPRESSION: 1. Normal spirometry, 2. Post-bronchodilator study was not done.
== END 2017-12-01 15:36 | disposition home health service (06) ==
LOC: NEPC 08:11 → NEDA 10:11 → INTOOBSV 10:11 → N07B 13:14
PROVIDERS: ADMIT Hospitalist; ATTEND Hospitalist
DX: J84.112 Idiopathic pulmonary fibrosis (principal); J84.89 Other specified interstitial pulmonary diseases; G25.81 Restless legs syndrome; I10 Essential (primary) hypertension; I48.0 Paroxysmal atrial fibrillation; E87.6 Hypokalemia; E87.1 Hypo-osmolality and hyponatremia; E86.0 Dehydration; E78.5 Hyperlipidemia, unspecified; J40 Bronchitis, not specified as acute or chronic; M79.7 Fibromyalgia; R09.02 Hypoxemia; Z87.442 Personal history of urinary calculi; Z90.49 Acquired absence of other specified parts of digestive tract; Z90.5 Acquired absence of kidney; Z90.710 Acquired absence of both cervix and uterus; Z80.1 Family history of malignant neoplasm of trachea, bronchus and lung
CPT/HCPCS: 71045; 80048; 80053; 81001; 83605; 83690; 85025; 85652; 86038; 86430; 87040; 94010; 94618; 96361; 96365; 99285; G0378; J0456; J2543; J3480; J7030; J7050